=== PATIENT | female | born 1950 | race Caucasian/White ===

== ENCOUNTER 2023-01-03 09:08 | Outpatient (OUT) | payer MEDICARE, SELFPAY ==
--- NOTE | 2023-01-03 09:15 | ECG_ITS ---
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
[2023-01-03 10:53] LABS: Basophils Percent Auto 0.6 % (0.2-2.0); Eosinophils Absolute Auto 0.1 10^3/uL (0.0-0.7); Eosinophils Percent Auto 1.5 % (0.9-7.0); Hematocrit 45.7 % (36.0-48.0); Hemoglobin 14.8 g/dL (12.0-16.0); Immature Granulocytes Abs Auto 0.02 10^3/uL (0.00-0.03); Immature Granulocytes Pct Auto 0.3 % (0.0-0.5); Lymphocytes Absolute Auto 1.6 10^3/uL (1.2-3.8); Lymphocytes Percent Auto 22.1 % (20.5-60.0); Mean Corpuscular HGB Conc 32.4 g/dL (29.9-35.2); Mean Corpuscular Hemoglobin 28.1 pg (26.7-34.0); Mean Corpuscular Volume 86.9 fL (81.0-99.0); Monocytes Absolute Auto 0.5 10^3/uL (0.3-0.8); Monocytes Percent Auto 7.4 % (1.7-12.0); Neutrophils Absolute Auto 4.9 10^3/uL (1.4-6.5); Neutrophils Percent Auto 68.1 % (43.0-75.0); Platelet Count 249 10^3/uL (150-450); Red Blood Count 5.26 10^6/uL (4.20-5.40); Red Cell Distribution Width 13.7 % (11.0-15.0); White Blood Count 7.2 10^3/uL (4.0-11.0)
[2023-01-03 11:03] LABS: Anion Gap 7.5; BUN Creatinine Ratio 18.9; Calcium 9.2 mg/dL (8.5-10.1); Chloride 106 mmol/L (98-107); Estimated GFR (African America >60 (>=60); Estimated GFR (Non-African Ame >60 (>=60); Glucose 105 mg/dL (74-106); Potassium 3.5 mmol/L (3.5-5.1); Sodium 142 mmol/L (136-145)
[2023-01-03 11:08] LABS: INR 0.99; Partial Thromboplastin Time 29.2 sec (22.3-36.2); Prothrombin Time 10.5 sec (9.0-11.6)
== END 2023-01-03 09:09 | disposition home or self-care (01) ==
LOC: PST 09:13
PROVIDERS: Visit Provider Urology
DX: Z01.810 Encounter for preprocedural cardiovascular examination (principal); Z01.812 Encounter for preprocedural laboratory examination; R31.9 Hematuria, unspecified; F41.9 Anxiety disorder, unspecified; R01.1 Cardiac murmur, unspecified; E78.5 Hyperlipidemia, unspecified; F32.A Depression, unspecified; I10 Essential (primary) hypertension; E11.9 Type 2 diabetes mellitus without complications; R93.89 Abnormal findings on diagnostic imaging of other specified body structures
CPT/HCPCS: 36415; 80048; 85025; 85610; 85730; 93005

== ENCOUNTER 2023-01-16 06:30 | Day surgery (SDC) | payer MEDICARE, SELFPAY ==
[2023-01-03 09:45] VITALS: BP 120/79; PULSE 77; RESP 18; TEMP 36.3; O2SAT 96; BMI 31.7
[2023-01-16] VITALS (8 sets, daily range): BP systolic 121–139; BP diastolic 69–88; PULSE 74–77; RESP 9–16; TEMP 36.1–36.9; O2SAT 91–95; BMI 31.4
[2023-01-16 07:09] LABS: Glucometer 123 mg/dL (74-106)
[2023-01-16] MEDS: LACTATED RINGER'S SOLUTION 1,000 ML 50 ML IV (07:11)
[2023-01-16] MEDS: CEFAZOLIN SODIUM/DEXTROSE,ISO 1 GM/50 ML IV.SOLN IV (07:33)
--- NOTE | 2023-01-16 08:00 | P.URON_ITS ---
Urology Surgery Operative Note Operative Note Procedure Date: 01/16/23 Time Out Performed: yes Pre-op Diagnosis: hematuria and right ureteral thickening and hydronephrosis by CT scan. Post-op Diagnosis: same as pre-op Procedures performed: #1. Cystoscopy. #2. Right rigid ureteral dilation. #3. Right ureteroscopy. Anesthesia: General-LMA Primary Surgeon: Jace Paredes Complications: none Estimated blood loss (mL): 0 Findings: #1. No bladder tumors. #2. No ureteral tumors or abnormalities. Specimens: none Indications for Procedures: this lady was found to have prominence of her right renal collecting system and ureteral thickening in the distal ureter with questionable mass by CT scan. She also was found to have microhematuria. She now presents for cystoscopy, ureteroscopy, possible biopsy and possible right stent. She has signed an informed consent after all these risks were explained to her in great detail. Detailed description of Procedure: The patient was brought to the operating room and placed on the operating room table in the supine position. SCDs were placed on the lower extremities and turned on and functioning during the entire case. Timeout was done by all parties in the room. We all agreed upon the patient's identification and the planned procedures for this patient. Genn. anesthesia was then administered. The patient was then repositioned into the modified dorsal lithotomy position. All pressure points were satisfactorily padded. Genitalia were sterilely prepped and draped in usual fashion.I started by passing a 22 [place] Olympus cystoscope per urethra and into the bladder. Careful panendoscopy revealed no evidence of any bladder tumors or stones. There were no mucosal lesions or erythematous areas. She had a fairly sizable and deep diverticulum on the right back wall of the bladder. I was able to scope within it and found no tumors or stones. I then passed a Glidewire through the scope and cannulated the right ureter. The wire easily passed up to the kidney. I then used an 8 and a 10 [place] rigid dilator to dilate the distal ureter. The cystoscope was removed. I then passed a semirigid Olympus ureteroscope adjacent to the wire through the urethra into the bladder and into the right distal ureter. I carefully ascended up the ureter. There was no evidence of any mucosal abnormalities, tumors, sto kiet or strictures. I was able to safely scope all the way into the renal pelvis. No abnormalities were found within the kidney. The scope was then removed. I then passed the cystoscope and the bladder and drained the bladder of its contents. The scope and wire were then removed. She was then transferred to a [facility] bed and wheeled to PACU in stable condition.
== END 2023-01-16 09:15 | disposition home or self-care (01) ==
PROVIDERS: Visit Provider Urology
PROC: (CPT 52351; principal; 2023-01-16 07:30)
DX: R93.89 Abnormal findings on diagnostic imaging of other specified body structures (principal); R31.21 Asymptomatic microscopic hematuria; E11.9 Type 2 diabetes mellitus without complications; E78.00 Pure hypercholesterolemia, unspecified; I10 Essential (primary) hypertension; Z87.442 Personal history of urinary calculi; Z79.899 Other long term (current) drug therapy; N13.30 Unspecified hydronephrosis
CPT/HCPCS: 52351; 36415; 76000; 82948; J2704